=== PATIENT | female | born 1955 | race Two or more races ===

== ENCOUNTER 2025-03-20 08:19 | Outpatient (CLI) | payer OTHER | END 2025-03-20 08:29 | disposition home or self-care (01) | LOC: TOM 08:19 | PROVIDERS: ATTEND Surgery | DX: Z12.11 Encounter for screening for malignant neoplasm of colon (principal) ==

== ENCOUNTER 2025-05-22 08:06 | Outpatient (CLI) | payer OTHER | END 2025-05-22 08:08 | disposition home or self-care (01) | LOC: SONOGRAMA 08:06 | PROVIDERS: ATTEND Surgery | DX: K76.9 Liver disease, unspecified (principal) ==